=== PATIENT | male | born 1960 | race African-American/Black ===

== ENCOUNTER 2021-07-23 08:56 | Emergency (ER) | payer OTHER ==
[~2021-07-23] VITALS: Ht 175.3 cm; Wt 75.0 kg
[2021-07-23] MEDS ORDERED: fentaNYL PF VIAL 100 MCG/2 ML VIAL IVP ONE (09:30)
--- NOTE | 2021-07-23 09:35 | PHYS DOC ---
Past Medical History Past Medical History: No Pertinent History Past Surgical History: No Surgical History Smoking Status: Never Smoker Alcohol Use: None Drug Use: None General Adult EDM: Chief Complaint: TESTICULAR PAIN OR INJURY HPI: HPI: Patient is a 61-year-old male who presents today with testicular pain. Patient states that 1 week ago he was lifting a 50 pound box of water he said that he had some lower back pain following that lifting, he said in a couple of days that pain has resolved he said then 3 days ago 4 days ago he started experiencing testicular pain, and over the last 3 to 4 days it is worsened. He states thought that if he waited the pain would go away and it still has not gone away. Patient has no medical history per his report he takes no medications on a daily basis. Patient states he has no difficulty urinating or defecating Review of Systems: Review of Systems: Constitutional: Denies fever or chills. [] Eyes: Denies change in visual acuity. [] HENT: Denies nasal congestion or sore throat. [] Respiratory: Denies cough or shortness of breath. [] Cardiovascular: Denies chest pain or edema. [] GI: Denies abdominal pain, nausea, vomiting, bloody stools or diarrhea. [] : Right testicular pain denies dysuria. [] Musculoskeletal: Denies back pain or joint pain. [] Integument: Denies rash. [] Neurologic: Denies headache, focal weakness or sensory changes. [] Endocrine: Denies polyuria or polydipsia. [] Lymphatic: Denies swollen glands. [] Psychiatric: Denies depression or anxiety. [] Heart Score: C/O Chest Pain: N/A Risk Factors: Risk Factors: DM, Current or recent (<one month) smoker, HTN, HLP, family history of CAD, obesity. Risk Scores: Score 0 - 3: 2.5% MACE over next 6 weeks - Discharge Home Score 4 - 6: 20.3% MACE over next 6 weeks - Admit for Clinical Observation Score 7 - 10: 72.7% MACE over next 6 weeks - Early Invasive Strategies Allergies: Allergies: Allergies Coded Allergies Type Severity Reaction Last Updated Verified Penicillins Adverse Reaction Mild NAUSEA 07/23/21 Yes Physical Exam: PE: Constitutional: Well developed, well nourished, mild distress, non-toxic appearance. [] HENT: Normocephalic, atraumatic, bilateral external ears normal, oropharynx moist, no oral exudates, nose normal. [] Eyes: PERRLA, EOMI, conjunctiva normal, no discharge. [] Neck: Normal range of motion, no tenderness, supple, no stridor. [] Cardiovascular:Heart rate regular rhythm, no murmur [] Lungs & Thorax: Bilateral breath sounds clear to auscultation [] Abdomen: Bowel sounds normal, soft, no tenderness, no masses, no pulsatile masses. [] Skin: Warm, dry, no erythema, no rash. [] Back: No tenderness, no CVA tenderness. [] Extremities: No tenderness, no cyanosis, no clubbing, ROM intact, no edema. [] Neurologic: Alert and oriented X 3, normal motor function, normal sensory function, no focal deficits noted. [] Psychologic: Affect normal, judgement normal, mood normal. [] : Patient's testicles and penis was inspected shows no lacerations, abrasions, contusions,'s or ecchymosis noted, right testicle was tender to touch and very firm in consistency, left testicle was soft but painful as well. Patient had no penile discharge. This exam was done with a civil estimator at the bedside. Current Patient Data: Labs: Laboratory Tests Test 07/23/21 09:15 White Blood Count 10.9 x10^3/uL Red Blood Count 5.96 x10^6/uL Hemoglobin 12.9 g/dL Hematocrit 41.7 % Mean Corpuscular Volume 70 fL Mean Corpuscular Hemoglobin 22 pg Mean Corpuscular Hemoglobin Concent 31 g/dL Red Cell Distribution Width 20.5 % Platelet Count 223 x10^3/uL Neutrophils (%) (Auto) 79 % Lymphocytes (%) (Auto) 8 % Monocytes (%) (Auto) 13 % Eosinophils (%) (Auto) 0 % Basophils (%) (Auto) 0 % Neutrophils # (Auto) 8.6 x10^3/uL Lymphocytes # (Auto) 0.9 x10^3/uL Monocytes # (Auto) 1.4 x10^3/uL Eosinophils # (Auto) 0.0 x10^3/uL Basophils # (Auto) 0.0 x10^3/uL Platelet Estimate Adequate Polychromasia Present Hypochromasia Present Microcytosis Present Urine Collection Type Unknown Urine Color Yellow Urine Clarity Hazy Urine pH 6.5 Urine Specific [place] >=1.030 Urine Protein 100 mg/dL Urine Glucose (UA) 500 mg/dL Urine Ketones (Stick) Trace mg/dL Urine Blood Trace Urine Nitrite Positive Urine Bilirubin Negative Urine Urobilinogen Dipstick 0.2 mg/dL Urine Leukocyte Esterase Trace Urine RBC 0 /HPF Urine WBC 5-10 /HPF Urine Bacteria Many /HPF Sodium Level 137 mmol/L Potassium Level 4.4 mmol/L Chloride Level 100 mmol/L Carbon Dioxide Level 28 mmol/L Anion Gap 9 Blood Urea Nitrogen 12 mg/dL Creatinine 1.1 mg/dL Estimated GFR (Cockcroft-Gault) 67.6 Glucose Level 133 mg/dL Calcium Level 8.6 mg/dL Current Medications Medications (Trade) Dose Ordered Sig/Ambreen Route PRN Reason Start Time Stop Time Status Last Admin Dose Admin Fentanyl Citrate (Fentanyl 2ml Vial) 50 mcg 1X ONCE IVP 07/23/21 09:30 07/23/21 09:32 DC 07/23/21 09:47 Vancomycin HCl (Vanco Per Pharmacy) 1 each PRN DAILY PRN MC SEE COMMENTS 07/23/21 10:30 UNV Vancomycin HCl 1.75 gm/Sodium Chloride 500 ml @ 250 mls/hr 1X ONCE IV 07/23/21 10:45 07/23/21 12:44 Vital Signs: Vital Signs Date Time Temp Pulse Resp B/P (MAP) Pulse Ox O2 Delivery O2 Flow Rate FiO2 07/23/21 13:45 98.9 94 128/63 (84) 98 Room Air 98.9 07/23/21 12:12 92 181/89 (119) 98 Room Air 07/23/21 11:12 76 142/74 (96) 98 Room Air 07/23/21 10:14 80 121/75 (90) 97 Room Air 07/23/21 09:47 16 100 07/23/21 09:20 98.2 78 18 149/85 (106) 99 Room Air 98.2 07/23/21 09:14 80 123/65 (84) 97 Room Air Vital Signs Date Time Temp Pulse Resp B/P (MAP) Pulse Ox O2 Delivery O2 Flow Rate FiO2 07/23/21 09:20 98.2 78 18 149/85 (106) 99 Room Air 98.2 EKG: EKG: [] Radiology/Procedures: Radiology/Procedures: [REASON: right testicular pain PROCEDURE: TESTICULAR/SCROTUM EXAMINATION: US TESTICULAR (SCROTAL ULTRASOUND) CLINICAL HISTORY: Right testicular pain. TECHNIQUE: Sonography of the scrotal contents with color flow and spectral Doppler imaging of the testicular vasculature was performed. COMPARISON: None FINDINGS: RIGHT SCROTUM: - Right Testis: 4.8 x 2.9 x 3.3 cm. Slightly heterogeneous parenchyma with hyperemia. - Right Epididymis: Hyperemic. - Hydrocele: Small heterogeneous collection with septations, compatible with a pyocele. - Varicocele: Absent. - Other: Asymmetric scrotal wall thickening compared to the contralateral side. LEFT SCROTUM: - Left Testis: 4.2 x 2.9 x 2.2 cm. Homogeneous with no calcifications or mass. Normal intratesticular arterial and venous flow with normal spectral waveforms. - Left Epididymis: Within normal limits. Vascular flow on Color Doppler symmetric to the contralateral side. - Hydrocele: None. - Varicocele: Absent. IMPRESSION: Right epididymoorchitis with small pyocele. Electronically signed by: Aaron Mims DO (07/23/2021 10:05 AM) [facility]: right testicular pain PROCEDURE: CT PELVIS W/CONTRAST CT pelvis with contrast. HISTORY: Right testicular pain CT scan of pelvis was done using 75 mL Omnipaque 300 contrast. Bladder is mildly distended. Prostate is generous. There is no mass in the pelvis. There is no abnormal fluid collection the pelvis. Bowel pattern is unremarkable. Bony pelvis is unremarkable. There is no inguinal hernia noted. There are small hydroceles in the scrotum. Scrotal is much better evaluated with ultrasound. Mild thickening of wall the scrotum. There are no abnormal air bubbles noted. IMPRESSION: 1. Hydroceles and edema in the scrotum, ultrasound is much better at evaluation of the scrotum.. 2. No pelvic mass or or bowel obstruction or other acute findings in the pelvis. PQRS Compliance Statement: One or more of the following individualized dose reduction techniques were utilized for this examination: 1. Automated exposure control 2. Adjustment of the mA and/or kV according to patient size 3. Use of iterative reconstruction technique Electronically signed by: Alonso Gracia MD (07/23/2021 12:02 PM) [id number] ] Course & Med Decision Making: Course & Med Decision Making Pertinent Labs and Imaging studies reviewed. (See chart for details) 1025 consulted with urology, Dr De La Torre's PA, they have requested that a CT of the pelvis to be done and that antibiotics be started at this time. They are asking for a repeat page back when the CT scan comes back so that they may review the CT results. Patient was informed of the plan of care and he is agreeable. 1250 Dr. Phillips from urology in the department he assessed patient he feels the patient can go home with Cipro 500 mg twice daily and follow-up in his office on Sunday or next week for further management of this. 1300 I went to the bedside to discuss this with the patient patient was found to be shivering, his oral temperature was 101.9, his heart rate was 101, patient states he just feels cold. Vancomycin continues to infuse we will give the patient some Tylenol while here in the department. Dragon Disclaimer: Dragon Disclaimer: This electronic medical record was generated, in whole or in part, using a voice recognition dictation system. Departure Departure Impression: Primary Impression: Epididymitis, right Disposition: HOME / SELF CARE / HOMELESS Condition: STABLE Referrals: GEMMA DE LA TORRE MD Patient Instructions: Epididymitis Additional Instructions: Cipro 500 mg take 1 tablet twice daily for 14 days Hydrocodone take 1 to 2 tablets every 6 hours as needed for moderate to severe pain [id number] Motrin or Tylenol as labeled directed for mild to moderate pain Follow-up with Dr. Patrick next week as directed by him for further management of your testicular issues Return to the emergency department if your symptoms worsen, you continue to run fevers over the next couple of days Scripts Hydrocodone Bit/Acetaminophen (HYDROCODONE-APAP 5-325 ) 1 Tab Tablet 1 TAB PO PRN Q6HRS PRN for PAIN, #20 TAB 0 Refills Prov: BASSAM MANRIQUE APRN 07/23/21 Ciprofloxacin Hcl (CIPRO) 500 Mg Tablet 1 TAB PO BID for 14 Days, #28 TAB 0 Refills Prov: BASSAM MANRIQUE APRN 07/23/21 BASSAM MANRIQUE APRN Jul 23, 2021 09:35
[2021-07-23 09:54] LABS: BASO % 0 % (0-3); EOS % 0 % (0-3); HEMATOCRIT 41.7 % (39.0-53.0); HEMOGLOBIN 12.9 g/dL (13.0-17.5); LYMPH # 0.9 x10^3/uL (1.0-4.8); LYMPH % 8 % (24-48); MEAN CORPUSCULAR HEMOGLOBIN 22 pg (25-35); MEAN CORPUSCULAR HGB CONC 31 g/dL (31-37); MEAN CORPUSCULAR VOLUME 70 fL (79-100); MONO # 1.4 x10^3/uL (0.0-1.1); MONO % 13 % (0-9); NEUT # 8.6 x10^3/uL (1.8-7.7); NEUT % 79 % (31-73); PLATELET COUNT 223 x10^3/uL (140-400); RED BLOOD COUNT 5.96 x10^6/uL (4.30-5.70); RED CELL DISTRIBUTION WIDTH 20.5 % (11.5-14.5); WHITE BLOOD COUNT 10.9 x10^3/uL (4.0-11.0)
--- NOTE | 2021-07-23 10:08 | RAD ---
EXAMINATION: US TESTICULAR (SCROTAL ULTRASOUND) CLINICAL HISTORY: Right testicular pain. TECHNIQUE: Sonography of the scrotal contents with color flow and spectral Doppler imaging of the reuben ticular vasculature was performed. COMPARISON: None FINDINGS: RIGHT SCROTUM: - Right Testis: 4.8 x 2.9 x 3.3 cm. Slightly heterogeneous parenchyma with hyperemia. - Right Epididymis: Hyperemic. - Hydrocele: Small heterogeneous collection with septations, compatible with a pyocele. - Varicocele: Absent. - Other: Asymmetric scrotal wall thickening compared to the contralateral side. LEFT SCROTUM: - Left Testis: 4.2 x 2.9 x 2.2 cm. Homogeneous with no calcifications or mass. Normal intratesticu lar arterial and venous flow with normal spectral waveforms. - Left Epididymis: Within normal limits. Vascular flow on Color Doppler symmetric to the contralat eral side. - Hydrocele: None. - Varicocele: Absent. IMPRESSION: Right epididymoorchitis with small pyocele. Electronically signed by: Aaron Mims DO (07/23/2021 10:05 AM) [facility]
[2021-07-23 10:09] LABS: BILIRUBIN,URINE NEGATIVE (NEG); CLARITY,URINE HAZY; COLOR,URINE YELLOW
[2021-07-23 10:10] LABS: BACTERIA,URINE MANY /HPF (0-FEW); NITRITE,URINE POSITIVE (NEG); PH,URINE 6.5 (<5.0-8.0); PROTEIN,URINE 100 mg/dL (NEG-TRACE); RBC,URINE 0 /HPF (0-2); UROBILINOGEN,URINE 0.2 mg/dL (0.2 mg/dL)
[2021-07-23 10:19] LABS: CALCIUM 8.6 mg/dL (8.5-10.1); CREATININE 1.1 mg/dL (0.7-1.3); GFR 67.6; POTASSIUM 4.4 mmol/L (3.5-5.1)
[2021-07-23] MEDS ORDERED: VANCOMYCIN PER PHARMACY MC PRN (10:30)
[2021-07-23 10:36] LABS: PLT ESTIMATE ADEQUATE (ADEQUATE)
[2021-07-23 10:37] LABS: HYPOCHROMIA PRESENT; MICROCYTOSIS PRESENT; POLYCHROMASIA PRESENT
[2021-07-23] MEDS ORDERED: VANCOMYCIN 1.75 GM in IV NORMAL SALINE 500ML BAG 500 ML IV ONE (10:45)
[2021-07-23] MEDS ORDERED: CONTRAST GIVEN. MC PRN (11:15)
[2021-07-23] MEDS ORDERED: IOHEXOL 300 MG/ML 100ML VIAL. IV ONE (11:15)
--- NOTE | 2021-07-23 12:04 | RAD ---
CT pelvis with contrast. HISTORY: Right testicular pain CT scan of pelvis was done using 75 mL Omnipaque 300 contrast. Bladder is mildly distended. Prostate is generous. There is no mass in the pelvis. There is no abnormal fluid collection the pelvis. Bowel pattern is unremarkable. Bony pelvis is unremarkable. There is no inguinal hernia noted. There are sm all hydroceles in the scrotum. Scrotal is much better evaluated with ultrasound. Mild thickening of w all the scrotum. There are no abnormal air bubbles noted. IMPRESSION: 1. Hydroceles and edema in the scrotum, ultrasound is much better at evaluation of the scrotum.. 2. No pelvic mass or or bowel obstruction or other acute findings in the pelvis. PQRS Compliance Statement: One or more of the following individualized dose reduction techniques were utilized for this examinat ion: 1. Automated exposure control 2. Adjustment of the mA and/or kV according to patient size 3. Use of iterative reconstruction technique Electronically signed by: Alonso Gracia MD (07/23/2021 12:02 PM) [id number]
[2021-07-23] MEDS ORDERED: ACETAMINOPHEN 500 MG TABLET PO ONE (13:15)
--- NOTE | 2021-07-23 13:32 | PDOC2 ---
UROLOGY CONSULT DOS: DATE: 07/23/21 TIME: 13:21 Reason for Consult: right epididmo-orchitis Chief Complaint right testicle pain Source: Patient 61 year old male without significant past medical history came to the ER today with right testicular pain. States that he was lifting a heavy water jug 6 days ago, and since then has been having increased sensitivity around his right testicle. States yesterday it became more painful, so he came to the ER. Denies dysuria, frequency, urgency, hesitancy, fevers ,chills. Patient is , denies any other sexual partners or history of STDs. Denies history of UTI, or any other urological condition or procedure. Scrotal ultrasound was completed in the ER showing right epididimo-orchitis with fluid colletion concerning for pyocele. CT pelvis completed showing scrotal hydrocele. ROS ROS: RESPIRATORY: Shortness of breath denies. Cough denies. UROLOGY: denies dysuria, hesitancy, urgency, hematuria Current Medications Current Medications Fentanyl Citrate (Fentanyl 2ml Vial) 50 mcg 1X ONCE IVP Last administered on 07/23/21at 09:47; Start 07/23/21 at 09:30; Stop 07/23/21 at 09:32; Status DC Vancomycin HCl (Vanco Per Pharmacy) 1 each PRN DAILY PRN MC SEE COMMENTS; Start 07/23/21 at 10:30; Status UNV Vancomycin HCl 1.75 gm/Sodium Chloride 500 ml @ 250 mls/hr 1X ONCE IV Last administered on 07/23/21at 10:44; Start 07/23/21 at 10:45; Stop 07/23/21 at 12:44; Status DC Iohexol (Omnipaque 300 Mg/ml) 75 ml 1X ONCE IV Last administered on 07/23/21at 11:22; Start 07/23/21 at 11:15; Stop 07/23/21 at 11:16; Status DC Info (CONTRAST GIVEN -- Rx MONITORING) 1 each PRN DAILY PRN MC SEE COMMENTS; Start 07/23/21 at 11:15; Stop 07/25/21 at 11:14 Acetaminophen (Tylenol) 1,000 mg 1X ONCE PO Last administered on 07/23/21at 13:06; Start 07/23/21 at 13:15; Stop 07/23/21 at 13:16; Status DC Allergies: Coded Allergies: Penicillins (Verified Adverse Reaction, Mild, NAUSEA, 07/23/21) Physical Examination PHYSICAL EXAMINATION: GENERAL: Gen. appearance: No acute distress. Mood/affect: Pleasant. HEENT: Head: Normocephalic, atraumatic. Airway Impairment: No. CHEST: Shape and expansion: Normal. Expansion: Normal. SKIN: General: Warm. Color: Good. GENITOURINARY:left testicle WNL. Right testicle with swelling, erythema. Tender/sensitive to palpation. NEUROLOGICAL: Mental status: Alert and oriented 3. Language: Normal. VITALS Vital Signs Date Time Temp Pulse Resp B/P (MAP) Pulse Ox O2 Delivery O2 Flow Rate FiO2 07/23/21 11:12 76 142/74 (96) 98 Room Air 07/23/21 09:47 16 07/23/21 09:20 98.2 98.2 Labs Laboratory Tests Test 07/23/21 09:15 White Blood Count 10.9 x10^3/uL (4.0-11.0) Red Blood Count 5.96 x10^6/uL (4.30-5.70) Hemoglobin 12.9 g/dL (13.0-17.5) Hematocrit 41.7 % (39.0-53.0) Mean Corpuscular Volume 70 fL (79-100) Mean Corpuscular Hemoglobin 22 pg (25-35) Mean Corpuscular Hemoglobin Concent 31 g/dL (31-37) Red Cell Distribution Width 20.5 % (11.5-14.5) Platelet Count 223 x10^3/uL (140-400) Neutrophils (%) (Auto) 79 % (31-73) Lymphocytes (%) (Auto) 8 % (24-48) Monocytes (%) (Auto) 13 % (0-9) Eosinophils (%) (Auto) 0 % (0-3) Basophils (%) (Auto) 0 % (0-3) Neutrophils # (Auto) 8.6 x10^3/uL (1.8-7.7) Lymphocytes # (Auto) 0.9 x10^3/uL (1.0-4.8) Monocytes # (Auto) 1.4 x10^3/uL (0.0-1.1) Eosinophils # (Auto) 0.0 x10^3/uL (0.0-0.7) Basophils # (Auto) 0.0 x10^3/uL (0.0-0.2) Platelet Estimate Adequate (ADEQUATE) Polychromasia Present Hypochromasia Present Microcytosis Present Urine Collection Type Unknown Urine Color Yellow Urine Clarity Hazy Urine pH 6.5 (<5.0-8.0) Urine Specific [place] >=1.030 (1.000-1.030) Urine Protein 100 mg/dL (NEG-TRACE) Urine Glucose (UA) 500 mg/dL (NEG) Urine Ketones (Stick) Trace mg/dL (NEG) Urine Blood Trace (NEG) Urine Nitrite Positive (NEG) Urine Bilirubin Negative (NEG) Urine Urobilinogen Dipstick 0.2 mg/dL (0.2 mg/dL) Urine Leukocyte Esterase Trace (NEG) Urine RBC 0 /HPF (0-2) Urine WBC 5-10 /HPF (0-4) Urine Bacteria Many /HPF (0-FEW) Sodium Level 137 mmol/L (136-145) Potassium Level 4.4 mmol/L (3.5-5.1) Chloride Level 100 mmol/L (98-107) Carbon Dioxide Level 28 mmol/L (21-32) Anion Gap 9 (6-14) Blood Urea Nitrogen 12 mg/dL (8-26) Creatinine 1.1 mg/dL (0.7-1.3) Estimated GFR (Cockcroft-Gault) 67.6 Glucose Level 133 mg/dL (70-99) Calcium Level 8.6 mg/dL (8.5-10.1) Laboratory Tests Test 07/23/21 09:15 White Blood Count 10.9 x10^3/uL (4.0-11.0) Red Blood Count 5.96 x10^6/uL (4.30-5.70) Hemoglobin 12.9 g/dL (13.0-17.5) Hematocrit 41.7 % (39.0-53.0) Mean Corpuscular Volume 70 fL (79-100) Mean Corpuscular Hemoglobin 22 pg (25-35) Mean Corpuscular Hemoglobin Concent 31 g/dL (31-37) Red Cell Distribution Width 20.5 % (11.5-14.5) Platelet Count 223 x10^3/uL (140-400) Neutrophils (%) (Auto) 79 % (31-73) Lymphocytes (%) (Auto) 8 % (24-48) Monocytes (%) (Auto) 13 % (0-9) Eosinophils (%) (Auto) 0 % (0-3) Basophils (%) (Auto) 0 % (0-3) Neutrophils # (Auto) 8.6 x10^3/uL (1.8-7.7) Lymphocytes # (Auto) 0.9 x10^3/uL (1.0-4.8) Monocytes # (Auto) 1.4 x10^3/uL (0.0-1.1) Eosinophils # (Auto) 0.0 x10^3/uL (0.0-0.7) Basophils # (Auto) 0.0 x10^3/uL (0.0-0.2) Platelet Estimate Adequate (ADEQUATE) Polychromasia Present Hypochromasia Present Microcytosis Present Urine Collection Type Unknown Urine Color Yellow Urine Clarity Hazy Urine pH 6.5 (<5.0-8.0) Urine Specific [place] >=1.030 (1.000-1.030) Urine Protein 100 mg/dL (NEG-TRACE) Urine Glucose (UA) 500 mg/dL (NEG) Urine Ketones (Stick) Trace mg/dL (NEG) Urine Blood Trace (NEG) Urine Nitrite Positive (NEG) Urine Bilirubin Negative (NEG) Urine Urobilinogen Dipstick 0.2 mg/dL (0.2 mg/dL) Urine Leukocyte Esterase Trace (NEG) Urine RBC 0 /HPF (0-2) Urine WBC 5-10 /HPF (0-4) Urine Bacteria Many /HPF (0-FEW) Sodium Level 137 mmol/L (136-145) Potassium Level 4.4 mmol/L (3.5-5.1) Chloride Level 100 mmol/L (98-107) Carbon Dioxide Level 28 mmol/L (21-32) Anion Gap 9 (6-14) Blood Urea Nitrogen 12 mg/dL (8-26) Creatinine 1.1 mg/dL (0.7-1.3) Estimated GFR (Cockcroft-Gault) 67.6 Glucose Level 133 mg/dL (70-99) Calcium Level 8.6 mg/dL (8.5-10.1) Assessment/Plan ---Right epididimo--orchitis Reviewed imaging with Dr. Putnam. No concern at this time for pyocele. Appears to be hydrocele. UA positive for infection. WBC normal. Discussed treatment options, including staying inpatient for better pain control and IV antibiotics. Patient prefers to be discharged home if reasonable. Recommend 14 day course of po Cipro. Discussed with patient that we would like him to see Dr. Putnam in his [facility] office this week to assess improvement. Patient agreeable. Patient can call [phone] to make appointment. ER precautions discussed. Patient seen with Dr. Putnam and case discussed with FRANKLYN Funez. Please call with questions. GALEN QUINTANILLA APRN Jul 23, 2021 13:32
[2021-07-23 13:45] VITALS: BP 128/63
[2021-07-23] MEDS ORDERED: CIPR500T94 PO (13:51)
[2021-07-23] MEDS ORDERED: HYDR-2761 PO (13:51)
== END 2021-07-23 14:27 | disposition home or self-care (01) ==
LOC: ER 08:56
DX: N45.1 Epididymitis (principal); M54.50 Low back pain, unspecified; Z88.0 Allergy status to penicillin
CPT/HCPCS: 36415; 72193; 76870; 80048; 81001; 85025; 87077; 87086; 87186; 87491; 87591; 96365; 96375; 99285; J3010; J3370; J7040; Q9967